=== PATIENT | male | born 2000 | race Two or more races ===

== ENCOUNTER 2020-12-19 17:21 | Emergency (ER) | payer OTHER ==
--- NOTE | 2020-12-19 17:37 | ED Physician Documentation ---
PD HPI NVD - Stated complaint Stated Complaint: NAUSEA,VOMITING - Chief complaint Chief Complaint: Abd Pain - History obtained from History obtained from: Patient - History of Present Illness Timing - onset: Last night Timing - duration: Days (12) Timing - details: Gradual onset, Still present (worsening the past few hours.) Associated symptoms: Abdominal pain (mid abd/periumbilical), Dizzy (somewhat lightheaded today), Loss of appetite. No: Fever, Near syncope / syncope, Dysuria Contributing factors: Other (seen at Clinic today with negative COVID test.). No: Sick contact, Bad food, Alcohol use Improved by: No: Vomiting Worsened by: Moving. No: Palpation Similar symptoms before: Has not had sx before Recently seen: Clinic (had negative COVID test but not any further testing. Increased pain since then and so here for eval.) Review of Systems Constitutional: denies: Fever, Chills Nose: denies: Rhinorrhea / runny nose, Congestion Throat: denies: Sore throat Cardiac: denies: Chest pain / pressure Respiratory: denies: Dyspnea, Cough GI: reports: Abdominal Pain, Nausea, Vomiting (few times today). denies: Constipation, Diarrhea, Hematemesis : denies: Dysuria, Frequency Neurologic: reports: Generalized weakness (this afternoon). denies: Focal weakness, Numbness, Near syncope (but did feel lightheaded) PD PAST MEDICAL HISTORY - Past Medical History Cardiovascular: None Respiratory: None Neuro: None Endocrine/Autoimmune: None GI: None - Past Surgical History Past Surgical History: No - Present Medications Home Medications: Ambulatory Orders Medication Instructions Recorded Confirmed Ondansetron Odt [Zofran] 4 mg TL Q6H PRN #10 tablet 12/19/20 - Allergies Allergies/Adverse Reactions: Allergies Allergy/AdvReac Type Severity Reaction Status Date / Time No Known Drug Allergies Allergy Verified 12/19/20 17:29 PD ED PE NORMAL - Vitals Vital signs reviewed: Yes - General General: Alert and oriented X 3, No acute distress, Well developed/nourished - HEENT HEENT: Pharynx benign. No: Moist mucous membranes - Neck Neck: Supple, no meningeal sign, No adenopathy - Cardiac Cardiac: RRR, No murmur - Respiratory Respiratory: Clear bilaterally - Abdomen Abdomen: Normal bowel sounds, Soft, Non distended, No organomegaly, Other (Tender periumbilical to RLQ area with mild guarding but no percussion nor rebound tenderness. ) - Male Male : Deferred - Rectal Rectal: Deferred - Back Back: No CVA TTP - Derm Derm: Normal color, Warm and dry - Neuro Neuro: Alert and oriented X 3, No motor deficit, Normal speech Results - Vitals Vitals: Vital Signs - 24 hr 12/19/20 12/19/20 12/19/20 17:27 17:29 19:24 Temperature 36.7 C 36.7 C 37.3 C Heart Rate 70 70 88 Respiratory 16 16 18 Rate Blood Pressure 145/79 H 145/79 H 161/92 H O2 Saturation 99 99 100 Oxygen O2 Source Room air - Labs Labs: Laboratory Tests 12/19/20 12/19/20 12/19/20 17:58 17:58 19:00 WBC 7.5 RBC 5.13 Hgb 15.0 Hct 44.6 MCV 86.9 MCH 29.2 MCHC 33.6 RDW 12.3 Plt Count 302 MPV 10.7 Neut # (Auto) 4.4 Lymph # (Auto) 2.0 [place] # (Auto) 0.7 Eos # (Auto) 0.3 Baso # (Auto) 0.0 Absolute Nucleated RBC 0.00 Nucleated RBC % 0.0 Sodium 140 Potassium 3.8 Chloride 105 Carbon Dioxide 27 Anion Gap 8.0 BUN 15 Creatinine 0.9 Estimated GFR (MDRD) 108 Glucose 115 H Calcium 9.9 Total Bilirubin 0.6 AST 30 ALT 49 Alkaline Phosphatase 103 Total Protein 7.6 Albumin 4.6 Globulin 3.0 Albumin/Globulin Ratio 1.5 Lipase 26 Urine Color YELLOW Urine Clarity SL. CLOUDY Urine pH 7.5 Ur Specific [place] 1.020 Urine Protein NEGATIVE Urine Glucose (UA) NEGATIVE Urine Ketones NEGATIVE Urine Occult Blood SMALL H Urine Nitrite NEGATIVE Urine Bilirubin NEGATIVE Urine Urobilinogen 0.2 (NORMAL) Ur Leukocyte Esterase NEGATIVE Urine RBC 0-5 Urine WBC 0-3 Ur Squamous Epith Cells RARE Squamous Amorphous Sediment Marked Urine Bacteria Rare Ur Microscopic Review INDICATED Urine Culture Comments NOT INDICATED - Rads (name of study) abd/pelvic CT Radiology: See rad report PD MEDICAL DECISION MAKING - ED course Complexity details: reviewed results, considered differential (Location periumbilical and now some to right lower quadrant over the last 12 hours is suggestive of developing appendicitis. Other considerations are viral enteritis. Less likely kidney stone. Food related discomfort or malabsorption considerations.), d/w patient Departure - Departure Disposition: 01 Home, Self Care Clinical Impression: Abdominal pain Qualifiers: Abdominal location: periumbilical Qualified Code(s): R10.33 - Periumbilical pain Condition: Stable Record reviewed to determine appropriate education?: Yes Instructions: ED Abdominal Pain Unkn Cause Male Prescriptions: Ondansetron Odt [Zofran] 4 mg TL Q6H PRN #10 tablet PRN Reason: Nausea / Vomiting Comments: Return if worsening or if not better in the next 24 hours. Discharge Date/Time: 12/19/20 19:25
[2020-12-19] MEDS ORDERED: ONDANSETRON 4 MG/2 ML VIAL IVP STA (17:45)
[2020-12-19] MEDS ORDERED: SODIUM CHLORIDE 0.9% 1,000 ML IV STA (17:45)
[2020-12-19] MEDS ORDERED: KETOROLAC 15 MG/ML VIAL IVP STA (17:45)
[2020-12-19 18:03] LABS: BASOPHILS % (AUTO) 0.5 %; EOSINOPHILS # (AUTO) 0.3 10^3/uL (0.0-0.7); EOSINOPHILS % (AUTO) 3.9 %; HCT - HEMATOCRIT 44.6 % (42.0-52.0); LYMPHOCYTES % (AUTO) 26.7 %; MEAN CORPUSCULAR HEMOGLOBIN 29.2 pg (27.0-31.0); MEAN CORPUSCULAR HGB CONC 33.6 g/dL (32.0-36.0); MEAN CORPUSCULAR VOLUME 86.9 fL (80.0-94.0); MEAN PLATELET VOLUME 10.7 fL (7.4-11.4); MONOCYTES # (AUTO) 0.7 10^3/uL (0.0-1.0); MONOCYTES % (AUTO) 9.7 %; NEUTROPHILS # (AUTO) 4.4 10^3/uL (1.5-6.6); NEUTROPHILS % (AUTO) 58.9 %; PLT - PLATELET COUNT 302 10^3/uL (130-450); RED BLOOD COUNT 5.13 10^6/uL (4.70-6.10); RED CELL DISTRIBUTION WIDTH 12.3 % (12.0-15.0); WHITE BLOOD COUNT 7.5 x10^3/uL (4.8-10.8)
[2020-12-19 18:18] LABS: ALBUMIN 4.6 g/dL (3.2-5.5); ALBUMIN/GLOBULIN RATIO 1.5 (1.0-2.2); BILIRUBIN,TOTAL 0.6 mg/dL (0.2-1.0); CALCIUM 9.9 mg/dL (8.5-10.3); CREATININE 0.9 mg/dL (0.6-1.2); POTASSIUM 3.8 mmol/L (3.5-5.0); TOTAL PROTEIN 7.6 g/dL (6.7-8.2)
[2020-12-19] MEDS ORDERED: IOPAMIDOL-300 50 ML VIAL ONE (18:31)
[2020-12-19] MEDS ORDERED: IOPAMIDOL-300 50 ML VIAL IVP ONE (18:58)
--- NOTE | 2020-12-19 19:04 | CT Report ---
PROCEDURE: Abdomen/Pelvis W INDICATIONS: RLQ Abdominal pain, appendicitis suspected CONTRAST: IV CONTRAST: Isovue 300 ml: 100 PO CONTRAST: *NO PO CONTRAST TECHNIQUE: After the administration of 100 mL contrast, 5 mm thick sections acquired from the diaphragms to the symphysis. 5 mm thick coronal and sagittal reformats were acquired. For radiation dose reduction, t he following was used: automated exposure control, adjustment of mA and/or kV according to patient s ize. COMPARISON: None. FINDINGS: Image quality: Excellent. ABDOMEN: Lung bases: Lung bases are clear. Heart size is normal. Solid organs: Liver and spleen are normal in size and enhancement. Gallbladder is normal Biliary s ystem is non dilated. Pancreas enhances normally. No adrenal nodules. Kidneys demonstrate normal s ize and enhancement, without hydronephrosis. Peritoneum and bowel: Bowel loops demonstrate normal wall thickness and caliber. No free fluid or a ir. Nodes and vessels: No retroperitoneal or mesenteric adenopathy by size criteria. Aorta and inferior vena cava are normal in size. Miscellaneous: No ventral hernias. PELVIS: Genitourinary: Bladder wall thickness is normal. Miscellaneous: No inguinal hernias or adenopathy. Bones: No suspicious bony lesions. No vertebral body compression fractures. IMPRESSION: 1. No acute abdominal or pelvic abnormality. 2. Normal appendix. 3. No kidney stones. Reviewed by: Ramos Emerson on 12/19/2020 7:03 PM PDT Approved by: Ramos Emerson on 12/19/2020 7:03 PM PDT Station ID: [id number]
[2020-12-19 19:08] LABS: BILIRUBIN,URINE NEGATIVE (NEGATIVE); GLUCOSE, URINE (UA) NEGATIVE (NEGATIVE); KETONES,URINE (UA) NEGATIVE (NEGATIVE); LEUKOCYTE ESTERASE, URINE NEGATIVE (NEGATIVE); NITRITE,URINE NEGATIVE (NEGATIVE); OCCULT BLOOD,URINE SMALL (NEGATIVE); PH,URINE 7.5 PH (5.0-7.5); PROTEIN,URINE NEGATIVE (NEGATIVE); UROBILINOGEN,URINE 0.2 (NORMAL) E.U./dL (NORMAL)
[2020-12-19 19:11] LABS: CLARITY,URINE SL. CLOUDY (CLEAR)
[2020-12-19 19:13] LABS: AMORPHOUS SEDIMENT,UR Marked /LPF; BACTERIA,URINE Rare /HPF (None Seen); RBC,URINE 0-5 /HPF (0-5); SQUAMOUS EPITHELIAL CELL,UR RARE Squamous (<= Few); WBC,URINE 0-3 /HPF (0-3)
[2020-12-19 19:25] VITALS: BP 161/92
== END 2020-12-19 19:25 | disposition home or self-care (01) ==
LOC: ED 17:21
DX: R10.33 Periumbilical pain (principal)
CPT/HCPCS: 36415; 74177; 80053; 81001; 83690; 85025; 96374; 96375; 99284; Q9967; 81003; 87086